=== PATIENT | female | born 1965 ===

== ENCOUNTER 2024-03-23 04:10 | Day surgery (SDC) | payer OTHER ==
[2024-03-23] MEDS ORDERED: ONDANSETRON 4 MG/2 ML VIAL ONE (08:43)
[2024-03-23] MEDS ORDERED: METOCLOPRAMIDE HCL INJECTION 10 MG/2 ML VIAL ONE (08:43)
[2024-03-23] MEDS ORDERED: DEXAMETHASONE SOD PHOSPHATE 4 MG/1 ML VIAL ONE (08:43)
[2024-03-23] MEDS ORDERED: ceFAZolin SODIUM 1 GM VIAL ONE (08:43)
[2024-03-23] MEDS ORDERED: GENTAMICIN SO4 80 MG/2 ML VIAL ONE (09:18)
[2024-03-23] MEDS ORDERED: LIDOCAINE HCL 1%, 10 MG/ML (20ML VIAL) ONE (09:18)
[2024-03-23] MEDS ORDERED: ONDANSETRON 4 MG/2 ML VIAL IVPUSH PRN (09:53)
[2024-03-23] MEDS ORDERED: oxyCODONE HCL 5 MG TABLET PO PRN (09:53)
[2024-03-23] MEDS ORDERED: LACTATED RINGERS SOLUTION 1,000 ML IV SCH (10:00)
[2024-03-23] MEDS ORDERED: DEXMEDETOMIDINE HCL 200 MCG/2 ML IVPB ONE (10:13)
[2024-03-23] MEDS ORDERED: ACETAMINOPHEN INJECTION 100 ML IVPB ONE (10:13)
[2024-03-23] MEDS ORDERED: MIDAZOLAM HCL 2 MG/2 ML SINGLE DOSE VIAL ONE (10:15)
[2024-03-23] MEDS: CLINDAMYCIN PHOSPHATE 300 MG/2 ML VIAL IVPB ONE (10:19)
[2024-03-23] MEDS: BUPIVACAINE HCL/PF 0.5% (5MG/ML) 10 ML VIAL IJ ONE ×2 (10:20→10:26)
[2024-03-23] MEDS: LIDOCAINE HCL 1%, 10 MG/ML (20ML VIAL) NR ONE ×2 (10:20→10:26)
[2024-03-23] MEDS ORDERED: PROPOFOL 60 ML ONE (10:20)
[2024-03-23] MEDS: CLINDAMYCIN 600 MG PREMIX BAG IVPB ONE (10:21)
[2024-03-23] MEDS ORDERED: CLINDAMYCIN PHOSPHATE 600 MG/4 ML VIAL ONE (10:21)
[2024-03-23 12:17] VITALS: RESP 20; TEMP 97.2
[2024-03-23 12:19] VITALS: BP 137/71; PULSE 69
== END 2024-03-23 12:39 | disposition home or self-care (01) ==
LOC: JASU-SURG 04:10
PROVIDERS: ATTEND Podiatrist Foot Surgery
PROC: 0HBRXZZ Excision of Toe Nail, External Approach (ICD-10-PCS; principal; 2024-03-23 10:00)
PROC: 0HBRXZZ Excision of Toe Nail, External Approach (ICD-10-PCS; 2024-03-23 10:00)
DX: L03.031 Cellulitis of right toe (principal); L03.032 Cellulitis of left toe
CPT/HCPCS: 88304-TC; 88312-TC; J0131